=== PATIENT | female | born 1955 | race Caucasian/White ===

== ENCOUNTER 2017-09-18 09:17 | Observation (INO) | payer MEDICARE, MEDICAID ==
[~2017-09-18] VITALS: Ht 157.5 cm; Wt 80.0 kg
[~2017-09-18 09:17] MED LIST: ALAVERT10 MG PO; ALPRAZOLAM0.5 M1 OR; ALPRAZOLAM0.5 MG PO; ALTOPREV20 MG OR; ALTOPREV40 MG OR; AMBIEN10 MG PO; AMLODIPINE10 MG PO; AMLODIPINE5 MG PO; ASPIRIN81 MG PO; ATENOLOL50 MG OR; ATIVAN0.5 MG OR; BACTRIM DS1 TAB PO; BL ASPIRIN325 MG OR; CAPOTEN25 MG OR; CARAFATE OR; CARAFATE1 GM PO; CLONIDINE0.2 MG OR; CLONIDINE0.2 MG PO; CORTISPORIN OP7.5 ML OP; DEPO-MEDROL40 MG/ML IJ; ENALAPRIL20 MG OR; ENALAPRIL20 MG PO; ERY-TAB250 MG OR; FENOFIBRATE134 MG OR; FLAGYL500 MG OR; FLEXERIL PO; FLEXERIL10 MG PO; FLONASE NASAL50 MCG; FLUARIX QUADRIV1 IN1 IM; FLUZONE SPLT1 M1 IM; FREESTYLE LANCET XX; FREESTYLELITE100 XX; GLIPIZIDE10 M1 PO; GLIPIZIDE10 M2 PO; GLIPIZIDE10 MG PO; HYDRALAZINE25 MG PO; HYDROCO/APAP1 T10 PO; HYDROCO/APAP1 T13 PO; KEFLEX500 MG PO; LIPITOR20 MG PO; LIPITOR40 MG PO; LISINOPRIL20 M1 PO; LONITEN2.5 M1 PO; LOPID600 MG OR; LOPRESSOR50 MG OR; LORTAB 7.5 OR; LORTAB 7.5 PO; LORTAB 7.57.5 MG PO; LYRICA50 MG PO; Levaquin PO; MECLIZINE25 MG PO; MEDDOSEPAK PO; METFORMIN500 MG PO; METOPROL TAR100 MG PO; METOPROLOL TAR100 MG PO; METOPROLOL TART50 MG PO; NITRO-DUR0.4 MG/HR TD; NORVASC10 MG OR; OMEPRAZOLE10 MG OR; PAROXETINE10 MG PO; PAXIL30 MG PO; PERCOCET 5/325M1 TAB PO; PLAVIX75 MG PO; PRAVASTATIN80 MG OR; PREMARIN0.3 MG PO; PREVACID30 M1 OR; PROAIR HFA IN; RESTORIL15 M1 OR; TIZANIDINE2 MG PO; TRICOR145 MG OR; ULTRACET OR; UNISOM SLEEP50 MG OR; XANAX0.5 MG OR; ZPAK PO; ZYRTEC-D AL1 OR
[2017-09-18 10:17] LABS: URINE BILIRUBIN - DIPSTICK NEGATIVE (NEGATIVE); URINE BLOOD DIPSTICK MODERATE (NEGATIVE); URINE COLOR YELLOW; URINE GLUCOSE - DIPSTICK NEGATIVE (NEGATIVE); URINE KETONE NEGATIVE (NEGATIVE); URINE PH 5.5 (4.5-8.0); URINE PROTEIN - DIPSTICK 30 mg/dL (NEG-TRACE); URINE SPECIFIC GRAVITY 1.025; URINE UROBILINOGEN - DIPSTICK 0.2 E.U./dL (0.2)
[2017-09-18 10:21] LABS: URINE CLARITY CLOUDY; URINE LEUK ESTERASE MODERATE (NEGATIVE); URINE NITRITE - DIPSTICK POSITIVE (Negative)
[2017-09-18 10:22] LABS: HEMATOCRIT 48.4 % (37.0-47.0); HEMOGLOBIN 15.8 g/dl (12.0-16.0); IMMATURE GRANULOCYTES 0.1 % (0.0-1.0); MEAN CELL VOLUME 94.2 fL CALC (80.0-100.0); MEAN CORPUSCULAR HGB 30.7 pG CALC (26.0-32.0); MEAN CORPUSCULAR HGB CONC 32.6 g/L CALC (32.0-36.0); NEUT# 6.46 thou/uL (2.00-7.15); RED BLOOD COUNT 5.14 mill/uL (4.20-5.60); RED CELL DISTRI WIDTH 13.9 % (11.5-15.5)
[2017-09-18 10:28] LABS: URINE BACTERIA MANY hpf; URINE EPITHELIAL CELLS MANY EPI/hpf (0-FEW); URINE WBC 20-50 WBC/hpf (0-5)
[2017-09-18 10:38] LABS: ANION GAP 17 (6-22 (CALC)); BUN 15 mg/dL (8-23); CARBON DIOXIDE 27 mmol/l (22-30); CHLORIDE 104 mmol/l (95-108); POTASSIUM 4.6 mmol/l (3.5-5.1); SODIUM 143 mmol/l (137-146)
[2017-09-18 10:42] LABS: BUN/CREATININE RATIO 19 (12-20 (CALC)); CREATININE 0.8 mg/dL (0.5-1.0); GFR > 60 ML/MIN (>=60 (CALC)); GFR FOR AFR.AMER. > 60 ML/MIN (>=60 (CALC))
[2017-09-18 12:00] VITALS: BP 192/80
[2017-09-18 16:24] VITALS: BP 192/91
[2017-09-18 17:02] VITALS: BP 210/100
[2017-09-18 19:15] LABS: CHOLESTEROL HDL RATIO 7.4 (<4.4 (CALC))
[2017-09-18 20:30] VITALS: BP 189/92
[2017-09-18 22:13] VITALS: BP 155/93
[2017-09-18 23:30] VITALS: BP 161/86
[2017-09-19] VITALS (7 sets, daily range): BP systolic 132–198; BP diastolic 74–101
[2017-09-19 04:40] LABS: HEMATOCRIT 47.1 % (37.0-47.0); HEMOGLOBIN 15.5 g/dl (12.0-16.0); IMMATURE GRANULOCYTES 0.2 % (0.0-1.0); MEAN CELL VOLUME 94.8 fL CALC (80.0-100.0); MEAN CORPUSCULAR HGB 31.2 pG CALC (26.0-32.0); MEAN CORPUSCULAR HGB CONC 32.9 g/L CALC (32.0-36.0); NEUT# 4.21 thou/uL (2.00-7.15); RED BLOOD COUNT 4.97 mill/uL (4.20-5.60); RED CELL DISTRI WIDTH 13.7 % (11.5-15.5)
[2017-09-19 04:46] LABS: ALBUMIN 4.1 g/dL (3.2-5.0); ALKALINE PHOSPHATASE 106 u/l (38-126); ANION GAP 14 (6-22 (CALC)); BILIRUBIN, TOTAL 0.5 mg/dL (0.0-1.4); BUN 13 mg/dL (8-23); BUN/CREATININE RATIO 19 (12-20 (CALC)); CARBON DIOXIDE 27 mmol/l (22-30); CHLORIDE 106 mmol/l (95-108); CREATININE 0.7 mg/dL (0.5-1.0); GFR > 60 ML/MIN (>=60 (CALC)); GFR FOR AFR.AMER. > 60 ML/MIN (>=60 (CALC)); POTASSIUM 4.3 mmol/l (3.5-5.1); SGOT/AST 15 u/l (9-36); SGPT/ALT 13 u/l (11-66); SODIUM 143 mmol/l (137-146); TOTAL PROTEIN 6.9 g/dL (6.3-8.2)
[2017-09-20 04:50] VITALS: BP 180/72
[2017-09-20 07:10] VITALS: BP 163/95
[2017-09-20 07:13] VITALS: BP 163/95
[2017-09-20] MEDS ORDERED: NITROFURANTOIN100 MG PO (09:16)
[2017-09-20 10:11] LABS: TSH, 3RD GENERATION 1.36 uIU/mL (0.47 - 4.68)
== END 2017-09-20 12:13 | disposition home or self-care (01) ==
LOC: ED 09:17 → ED-I 10:48 → ED 11:05 → MS2 11:06
PROVIDERS: Family Medicine; ADMIT Internal Medicine Geriatric Medicine; ATTEND Internal Medicine Geriatric Medicine
DX: R07.89 Other chest pain (principal); N39.0 Urinary tract infection, site not specified; I25.110 Atherosclerotic heart disease of native coronary artery with unstable angina pectoris; I11.9 Hypertensive heart disease without heart failure; F19.20 Other psychoactive substance dependence, uncomplicated; K21.9 Gastro-esophageal reflux disease without esophagitis; K27.9 Peptic ulcer, site unspecified, unspecified as acute or chronic, without hemorrhage or perforation; F41.9 Anxiety disorder, unspecified; G89.29 Other chronic pain; M54.5 Low back pain; E03.9 Hypothyroidism, unspecified; M85.80 Other specified disorders of bone density and structure, unspecified site; E11.9 Type 2 diabetes mellitus without complications; F32.9 Major depressive disorder, single episode, unspecified; F41.1 Generalized anxiety disorder; R10.13 Epigastric pain; R11.2 Nausea with vomiting, unspecified; B96.20 Unspecified Escherichia coli [E. coli] as the cause of diseases classified elsewhere; Z88.9 Allergy status to unspecified drugs, medicaments and biological substances; Z95.5 Presence of coronary angioplasty implant and graft

== ENCOUNTER → 2017-10-01 | Day surgery (SDC) | payer MEDICARE, MEDICAID ==
[~2017-10-01] MED LIST changes: +NITROFURANTN100 MG PO; +NITROFURANTOIN100 MG PO; +TRAMADOL HYDROC50 MG PO; +UNISOM SLEEP50 MG PO; +[UNRECOGNIZED DRUG - OTHER] PO
[2017-10-01 12:55] VITALS: BP 161/95
== END | disposition home or self-care (01) ==
LOC: ORM 08:12
PROVIDERS: ATTEND Urology
PROC: 0TSD0ZZ Reposition Urethra, Open Approach (ICD-10-PCS; principal; 2017-10-01)
DX: N39.3 Stress incontinence (female) (male) (principal); Z90.710 Acquired absence of both cervix and uterus; Z96.0 Presence of urogenital implants
CPT/HCPCS: C1771

== ENCOUNTER 2017-11-26 15:35 | Emergency (ER) | payer MEDICARE, MEDICAID ==
[~2017-11-26] VITALS: Ht 157.5 cm; Wt 70.0 kg
[2017-11-26] MEDS ORDERED: ATORVASTATIN CA40 MG PO (16:12)
[2017-11-26 16:14] LABS: HEMATOCRIT 37.3 % (37.0-47.0); HEMOGLOBIN 12.3 g/dl (12.0-16.0); IMMATURE GRANULOCYTES 0.4 % (0.0-1.0); MEAN CORPUSCULAR HGB 30.7 pG CALC (26.0-32.0); NEUT# 9.07 thou/uL (2.00-7.15); RED BLOOD COUNT 4.01 mill/uL (4.20-5.60)
[2017-11-26] MEDS ORDERED: PAROXETINE HCL30 MG PO (16:19)
[2017-11-26] MEDS ORDERED: CLONIDINE HCL0.2 MG PO (16:19)
[2017-11-26] MEDS ORDERED: DITROPAN PO (16:19)
[2017-11-26] MEDS ORDERED: PREMARIN0.3 MG PO (16:20)
[2017-11-26] MEDS ORDERED: LONITEN2.5 MG PO (16:21)
[2017-11-26] MEDS ORDERED: NORCO1 TA2 PO (16:22)
[2017-11-26] MEDS ORDERED: ZOLPIDEM TARTRA10 MG PO (16:22)
[2017-11-26] MEDS ORDERED: FLEXERIL5 MG PO (16:23)
[2017-11-26] MEDS ORDERED: LOPID600 MG PO (16:23)
[2017-11-26] MEDS ORDERED: ALPRAZOLAM0.5 M2 PO (16:23)
[2017-11-26] MEDS ORDERED: TYLENOL 500MG TAB PO (16:24)
[2017-11-26] MEDS ORDERED: UNISOM SLEEP50 MG PO (16:25)
[2017-11-26 17:30] VITALS: BP 131/74
== END 2017-11-26 17:30 | disposition home or self-care (01) ==
LOC: ED 15:35
PROVIDERS: Family Medicine
DX: L76.32 Postprocedural hematoma of skin and subcutaneous tissue following other procedure (principal); I10 Essential (primary) hypertension; E78.5 Hyperlipidemia, unspecified; E11.9 Type 2 diabetes mellitus without complications; I25.10 Atherosclerotic heart disease of native coronary artery without angina pectoris; Z85.41 Personal history of malignant neoplasm of cervix uteri; Z85.43 Personal history of malignant neoplasm of ovary; Z95.5 Presence of coronary angioplasty implant and graft; Y84.0 Cardiac catheterization as the cause of abnormal reaction of the patient, or of later complication, without mention of misadventure at the time of the procedure

== ENCOUNTER 2018-08-25 06:54 | Inpatient (IN) | payer MEDICARE, MEDICAID ==
[~2018-08-25] VITALS: Ht 157.5 cm; Wt 68.2 kg
[2018-08-25] VITALS (36 sets, daily range): BP systolic 129–191; BP diastolic 62–110
[~2018-08-25 06:54] MED LIST changes: +ALPRAZOLAM0.5 M2 PO; +ATORVASTATIN CA40 MG PO; +CLONIDINE HCL0.2 MG PO; +DITROPAN PO; +FLEXERIL5 MG PO; +LONITEN2.5 MG PO; +LOPID600 MG PO; +NORCO1 TA2 PO; +PAROXETINE HCL30 MG PO; +TYLENOL 500MG TAB PO; +ZOLPIDEM TARTRA10 MG PO
--- NOTE | 2018-08-25 06:55 | NUR ---
PATIENT ARRIVES TO ED VIA EMS.
[2018-08-25 07:28] LABS: HEMATOCRIT 45.8 % (37.0-47.0); HEMOGLOBIN 15.1 g/dl (12.0-16.0); IMMATURE GRANULOCYTES 0.3 % (0.0-5.0); MEAN CELL VOLUME 93.7 fL CALC (80.0-100.0); MEAN CORPUSCULAR HGB 30.9 pG CALC (26.0-32.0); NEUT# 7.78 thou/uL (2.00-7.15); RED BLOOD COUNT 4.89 mill/uL (4.20-5.60); RED CELL DISTRI WIDTH 13.3 % (11.5-15.5)
[2018-08-25 07:40] LABS: BARBITURATES NEGATIVE (NEGATIVE); COCAINE NEGATIVE (NEGATIVE); METHADONE NEGATIVE (NEGATIVE); OXCYCODONE NEGATIVE (NEGATIVE); TETRAHYDROCANNABIONOL POSITIVE (NEGATIVE); TRICYLIC ANTIDEPRESSANTS NEGATIVE (NEGATIVE)
--- NOTE | 2018-08-25 07:43 | NUR ---
INCREASED CARDENE DRIP TO 7.5 AFTER 15 MIN FOR BLOOD PRESSURE OF 220/93
[2018-08-25 07:45] LABS: ALBUMIN 4.7 g/dL (3.2-5.0); ALKALINE PHOSPHATASE 98 u/l (38-126); ANION GAP 16 (6-22 (CALC)); BILIRUBIN, TOTAL 0.5 mg/dL (0.0-1.4); BUN 16 mg/dL (8-23); BUN/CREATININE RATIO 26 (12-20 (CALC)); CARBON DIOXIDE 25 mmol/l (22-30); CHLORIDE 105 mmol/l (95-108); CREATININE 0.6 mg/dL (0.5-1.0); GFR > 60 ML/MIN (>=60 (CALC)); GFR FOR AFR.AMER. > 60 ML/MIN (>=60 (CALC)); POTASSIUM 4.5 mmol/l (3.5-5.1); SGOT/AST 23 u/l (9-36); SODIUM 142 mmol/l (137-146); TOTAL PROTEIN 7.4 g/dL (6.3-8.2)
--- NOTE | 2018-08-25 08:08 | NUR ---
PT RESTING QUIETLY WATCHING TV, NO CHEST PAIN AT THIS TIME. HAS A TOTAL OF 250CC OUTPUT OF URINE SINCE ARRIVAL
--- NOTE | 2018-08-25 08:25 | NUR ---
CALLED TO PTS ROOM, PT STATES SHE IS FEELING SOME PRESSURE ARUOND CHEST AT THIS TIME, DOESNT KNOW IF IT IS HEART OR ANXIETY BECAUSE SHE HASNT BEEN SMOKING HER MARIJUANA THIS AM. PT OPENLY ADMITS TO SMOKING MARIJUANA EVERY DAY, SEVERAL TIMES A DAY FOR 15 YEARS. ASKED IF SHE COULD HAVE HER FAMILY BRING HER IN SOME, ADVISED THIS IS A NON SMOKING FACILITY AND NO SHE COULD NOT, BUT TO ADDRESS IT WITH HER DOCTOR.
--- NOTE | 2018-08-25 08:26 | NUR ---
2ND EKG OBTAINED WITH NO CHANGES
--- NOTE | 2018-08-25 08:57 | NUR ---
NO CHEST PAIN AT THIS TIME
--- NOTE | 2018-08-25 09:10 | NUR ---
PT REMAINS CALM, NO MORE CHEST PAIN, CARDENE REMAINS AT 7.5 MG. VITAL SIGNS STABLE
--- NOTE | 2018-08-25 10:00 | NUR ---
NO CHEST PAIN, PT UP TO BATHROOM, BEDSIDE COMMODE. 500 CC URINE OUTPUT TOTAL FOR ER.
--- NOTE | 2018-08-25 10:44 | NUR ---
RECVD REPORT FROM GANGA RODRÍGUEZ IN ER
--- NOTE | 2018-08-25 10:45 | NUR ---
REPORT CALLED TO ICU, PT PACKAGED AND TRANSFERRED WITH MONITER PER STRETCHER.
--- NOTE | 2018-08-25 10:55 | NUR ---
PT ARRIVED TO ICU 6 BY STRETCHER WITH IV FROM ER. PT AMBULATED TO NEW BED WITH STEADY GAIT. PT COOPERATIVE & FRIENDLY WITH STAFF.
--- NOTE | 2018-08-25 11:15 | NUR ---
PT C/O GENERALIZED CHEST PAIN THAT "WRAPS AROUND TO BACK". DESCRIBED DULL INTERMITTENT PAIN x"FOREVER" BUT WORSENED IN LAST 2 DAYS. PT ADMITS TO SMOKING "ALL DAY" x15 YEARS, STATES SHE SMOKES TO RELEIVE ANXIETY BUT HAS NOT HAD ANY SINCE ARRIVING TO HOSPITAL THIS AM. PT DENIES SOB. DENIES N/V/D. STATES PAIN IS 4/10 RIGHT NOW. USUALLY TAKES LORTAB 7.5MG AT HOME FOR PAIN BUT HAS BEEN OUT FOR A MONTH. PT USUALLY LIVES ALONE BUT HER GRANDDAUGHTER HAS BEEN STAYING WITH HER; SHE FEELS SAFE. SHE DOES NOT DRIVE, SHE WALKS EVERYWHERE. ALLERGIC TO MANY DRUGS & SHELLFISH. DOES NOT EAT SEAFOOD. ABD SOFT/NONTENDER. PT STATES BM x2 DAYS AGO, WHICH IS NORMAL FOR PT, DOES NOT USE LAXATIVES. PT DENIES FALLS & USE OF MOBILITY DEVICE. STRONG PULSES x4, NO EDEMA. NSR ON TELE. DENIES ALCOHOL & TABACO USE. HAS UPPER DENTURES, NO HEARING AIDS. HAS HAD THE FLU SHORT THIS SEASON, PNA SHOT LAST YEAR. EXPLAINED CALLBELL & BED CONTROLS. CALLBELL W/IN REACH. BED IN LOWEST POSITION, WHEELS LOCKED, TOP RAILS UP. BSC NEXT TO BED. PT STATES SHE URCOLONI PLACED A BLADDER STIMULATOR BUT IT DOESNT WORK AND SHES UP TO TOILET ALL THE TIME.
--- NOTE | 2018-08-25 11:23 | NUR ---
PHARMACY WILL SEND BAG OF CARDENE. DR PAUL CONTACTED FOR DIET ORDER. RBVO FOR CARDIAC TRAY.
--- NOTE | 2018-08-25 13:00 | NUR ---
PT RESTING IN BED, EYES CLOSED. NO S/S OF DISTRESS. CALLBELL W/IN REACH. WILL CONTINUE TO MONITOR.
--- NOTE | 2018-08-25 14:08 | NUR ---
CARDENE TITRATED TO 5. NITRO PASTE REMOVED. PT C/O ALVARADO, PREVIOUSLY MEDICATED.
--- NOTE | 2018-08-25 14:50 | NUR ---
RT @BEDSIDE FOR EKG
--- NOTE | 2018-08-25 15:08 | NUR ---
PT RETURNED UNIT PORTABLE PHONE. STATES SHE'S GOING TO SLEEP NOW.
--- NOTE | 2018-08-25 16:01 | NUR ---
PT MEDICATED FOR C/O NAUSEA. DENIES CP & SOB, STATES NECK IS STIFF. PT ENCOURAGED TO REPOSITION. PT IS COOPERATIVE & FRIENDLY TOWARDS STAFF. NEW BAG OF CARDENE STARTED. PTS BP FLUCUATING UP & DOWN, VS TAKEN Q15MIN. BSC EMPTIED. 450cc CLEAR LIGHT YELLOW URINE.
--- NOTE | 2018-08-25 17:30 | NUR ---
DR PAUL @BEDSIDE ASSESSING PT & DISCUSSING POC. PT CALLED MD BACK INTO ROOM TO ASK MORE QUESTIONS.
--- NOTE | 2018-08-25 18:24 | NUR ---
PT TALKING ON CELLPHONE, READING OFF BP EVERY TIME IT CYCLES.
--- NOTE | 2018-08-25 19:30 | NUR ---
PT SITTING UP IN BED WATCHING TV. PT IS ALERT AND ORIENTED X3. SHIFT ASSESSMENT COMPLETED AT THIS TIME. IV PATENT X1. PT DENIES PAIN AT THIS TIME. PLAN OF CARE REVIEWED WITH PT. CALL LIGHT IN REACH. WILL CONTINUE TO MONITOR
--- NOTE | 2018-08-25 21:30 | NUR ---
RT AT BEDSIDE TO COMPLETE EKG
--- NOTE | 2018-08-25 22:30 | NUR ---
GRANDDAUGHTER CALLED FOR UPDATE. UPDATE PROVIDED.
--- NOTE | 2018-08-25 23:15 | NUR ---
HIGHWAY PAINTER AT BEDSIDE TO DRAW TROPONIN
[2018-08-26] VITALS (37 sets, daily range): BP systolic 127–229; BP diastolic 67–131
--- NOTE | 2018-08-26 00:35 | NUR ---
PT PLACED BACK ON CARDENE GTT PER TITRATION RECORD FOR BP 229/129. PT REMAINS BRADYCARDIC LOW 60S TO 50S. CALL LIGHT IN REACH. WILL CONTINUE TO MONITR.
--- NOTE | 2018-08-26 01:41 | NUR ---
PT RESTING IN BED WITH EYES CLOSED. BP IS IMPROVED. STILL HTN NOTED. WILL CONTINUE TO MONITOR.
--- NOTE | 2018-08-26 03:50 | NUR ---
labor supervisor at bedside to draw am labs
[2018-08-26 04:05] LABS: IMMATURE GRANULOCYTES 0.3 % (0.0-5.0); MEAN CELL VOLUME 92.7 fL CALC (80.0-100.0); MEAN CORPUSCULAR HGB 30.7 pG CALC (26.0-32.0); MEAN CORPUSCULAR HGB CONC 33.1 g/L CALC (32.0-36.0); RED BLOOD COUNT 5.73 mill/uL (4.20-5.60); RED CELL DISTRI WIDTH 13.4 % (11.5-15.5)
[2018-08-26 04:09] LABS: HEMATOCRIT 53.1 % (37.0-47.0); HEMOGLOBIN 17.6 g/dl (12.0-16.0)
[2018-08-26 04:14] LABS: ALBUMIN 4.8 g/dL (3.2-5.0); ALKALINE PHOSPHATASE 103 u/l (38-126); ANION GAP 16 (6-22 (CALC)); BILIRUBIN, TOTAL 0.8 mg/dL (0.0-1.4); BUN 12 mg/dL (8-23); BUN/CREATININE RATIO 16 (12-20 (CALC)); CALCULATED LDLCHOLESTEROL 106 mg/dL (62-129 (CALC)); CARBON DIOXIDE 26 mmol/l (22-30); CHLORIDE 103 mmol/l (95-108); CHOLESTEROL HDL RATIO 3.2 (<4.4 (CALC)); CREATININE 0.8 mg/dL (0.5-1.0); GFR > 60 ML/MIN (>=60 (CALC)); GFR FOR AFR.AMER. > 60 ML/MIN (>=60 (CALC)); HDL CHOLESTEROL 62 mg/dL (>=40); POTASSIUM 4.1 mmol/l (3.5-5.1); SGOT/AST 26 u/l (9-36); SODIUM 142 mmol/l (137-146); TOTAL CHOLESTEROL 198 mg/dl (0-199); TOTAL PROTEIN 7.8 g/dL (6.3-8.2); TOTAL TRIGLYCERIDES 152 mg/dl (30-149); VLDL CHOLESTROL 30 mg/dl (1-41 (CALC))
--- NOTE | 2018-08-26 05:46 | NUR ---
RT IN ROOM COMPLETING AM EKG
--- NOTE | 2018-08-26 06:45 | NUR ---
RECVD REPORT FROM GANGA TELLO AT START OF SHIFT.
--- NOTE | 2018-08-26 08:06 | NUR ---
DR PAUL @BEDSIDE DISCUSSING POC WITH PT.
--- NOTE | 2018-08-26 08:12 | NUR ---
RBVO FROM DR PAUL TO STOP EMILE MCCLAIN, HE WILL REPLACE WITH PO MEDS.
--- NOTE | 2018-08-26 09:08 | NUR ---
PT MEDICATED WITH MORNING MEDS. EDUCATED PT ON WHAT MEDS GIVEN AND WHAT THEY ARE INDICATED FOR. PT FRINEDLY WITH STAFF, VERY TALKATIVE, SHOWING PICTURES OF HER GRANDAUGHTER THAT IN DECEMBER. FRANSISCO W/IN REACH. BP HIGH. WILL CONTINUE TO MONITOR.
--- NOTE | 2018-08-26 11:38 | NUR ---
LUNCH TRAY PLACED ON BEDSIDE TABLE. PT ASKED IF SHE NEEDED TO EAT THAT NOW BC SHE WANTED TO TAKE A NAP. PT INFORMED WE CAN REHEAT FOOD LATER.
--- NOTE | 2018-08-26 12:01 | NUR ---
DR PAUL CALLED TO CHECK ON PTS BP. ADVISED PT WILL STAY ANOTHER NIGHT D/T BP OF 200'S/130'S. PT NOTIFIED.
--- NOTE | 2018-08-26 13:50 | NUR ---
PT SNORING IN BED WITH HEAD UNDER COVERS. NO S/S OF DISTRESS AT THIS TIEM.
--- NOTE | 2018-08-26 15:16 | NUR ---
EMS IV DC, TIP INTACT, DRESSING APPLIED. NEW IV #20g RAC ESTABLISHED W/BLOOD RETURN & EASY FLUSH. BP CUFF MOVED TO LEFT ARM. PT TOLERATED WELL. PT TALKING ON HER PHONE TO HER GRANDDAUGHTER. SHE IS HAPPY THAT ADMINISTRATION GAVE HER A COKE EARIER DURING ROUNDS. DENIES CP. DENIES SOB. WILL CONTINUE TO MONITOR.
--- NOTE | 2018-08-26 16:50 | NUR ---
PT SLEEPING ON RIGHT SIDE. CALLBELL W/IN REACH. NO S/S OF DISTRESS AT THIS TIME. WILL CONTINUE TO MONITOR.
--- NOTE | 2018-08-26 17:36 | NUR ---
PT C/O NAUSEA. MEDICATED FOR NAUSEA, ANXIETY, & CONSTIPATION. PT REFUSED DINNER.
--- NOTE | 2018-08-26 18:45 | NUR ---
REPORT FROM Kristy CORDOVA RN. ASSUMED PT. CARE.
--- NOTE | 2018-08-26 19:15 | NUR ---
PT. FOUND AWAKE, ALERT, ORIENTED X 3. SKIN WARM AND DRY. RESPS EVEN AND UNLABORED. NO DISTRESS NOTED. CALL LIGHT WITHIN REACH. LUNGS CTA. BOWEL SOUNDS PRESENT IN ALL QUADS. AFEBRILE. SINUS KAYLA ON THE MONITOR WITH MULTIFOCAL PVC'S. BP STABLE. NO EDEMA NOTED. DISTIL PULSES INTACT. CHIVO HOSE APPLIED. WILL CONTINUE TO MONITOR.
--- NOTE | 2018-08-26 20:20 | NUR ---
FAMILY AT BEDSIDE AT THIS TIME. PT. REMAINS STABLE. CALL LIGHT REMAINS WITHIN REACH. DENIES COMPLAINTS OF PAIN OR NEED.
--- NOTE | 2018-08-26 21:43 | NUR ---
PT. RESTING IN BED WITH EYES CLOSED. RESPS EVEN AND UNLABORED. REMAINS SINUS KAYLA ON THE MONITOR IN THE MID 40'S. CALL LIGHT REMAINS WITHIN REACH. WILL CONTINUE TO ASSESS.
--- NOTE | 2018-08-26 23:15 | NUR ---
PT. RESTING IN BED WITH EYES CLOSED. RESPS EVEN AND UNLABORED. REMAINS SINUS KAYLA WITH MULTIFOCAL PVC. BP SLIGHTLY ELEVATED. WILL CONTINUE TO ASESS.
[2018-08-27] VITALS (17 sets, daily range): BP systolic 117–221; BP diastolic 72–126
--- NOTE | 2018-08-27 00:29 | NUR ---
PT. EASILY AROUSABLE TO LIGHT VERBAL STIMULI. REMAINS AFEBRILE. MEDICATED PER PHYSICIAN ORDERS. BP REMAINS SLIGHTLY ELEVATED. WILL ASSESS FOR MEDICATION EFFECT. WARM BLANKET PROVIDED. CALL LIGHT REMAINS WITHIN REACH. WILL CONTINUE TO MONITOR.
--- NOTE | 2018-08-27 02:35 | NUR ---
PT. RESTING IN BED WITH EYES CLOSED. REMAINS STABLE ON THE MONITOR. HR REMAINS SINUS KAYLA IN THE 40'S. CALL LIGHT REMAINS WITHIN REACH.
--- NOTE | 2018-08-27 04:58 | NUR ---
PT. AWAKE, ALERT, ORIENTED X 3. NO DISTRESS. WATCHING TELEVISION. LAB AT BEDSIDE AT THIS TIME TO DRAW PATIENT. BP ELEVATED, WILL CONTINUE TO ASSESS.
[2018-08-27 05:03] LABS: HEMATOCRIT 49.5 % (37.0-47.0); HEMOGLOBIN 16.6 g/dl (12.0-16.0); IMMATURE GRANULOCYTES 0.2 % (0.0-5.0); MEAN CELL VOLUME 92.2 fL CALC (80.0-100.0); MEAN CORPUSCULAR HGB 30.9 pG CALC (26.0-32.0); MEAN CORPUSCULAR HGB CONC 33.5 g/L CALC (32.0-36.0); NEUT# 4.72 thou/uL (2.00-7.15); RED BLOOD COUNT 5.37 mill/uL (4.20-5.60); RED CELL DISTRI WIDTH 13.4 % (11.5-15.5)
[2018-08-27 05:30] LABS: ALBUMIN 4.6 g/dL (3.2-5.0); ALKALINE PHOSPHATASE 93 u/l (38-126); ANION GAP 15 (6-22 (CALC)); BILIRUBIN, TOTAL 0.8 mg/dL (0.0-1.4); BUN 26 mg/dL (8-23); BUN/CREATININE RATIO 31 (12-20 (CALC)); CARBON DIOXIDE 24 mmol/l (22-30); CHLORIDE 103 mmol/l (95-108); CREATININE 0.9 mg/dL (0.5-1.0); GFR > 60 ML/MIN (>=60 (CALC)); GFR FOR AFR.AMER. > 60 ML/MIN (>=60 (CALC)); POTASSIUM 3.9 mmol/l (3.5-5.1); SGOT/AST 21 u/l (9-36); SODIUM 138 mmol/l (137-146); TOTAL PROTEIN 7.2 g/dL (6.3-8.2)
--- NOTE | 2018-08-27 06:09 | NUR ---
BP REMAINS ELEVATED AT THIS TIME. MEDICATED PER PHYSICIAN ORDERS. WILL CONTINUE TO ASSESS FOR IMPROVEMENT.
--- NOTE | 2018-08-27 07:15 | NUR ---
PT RESTING IN BED, WATCHING TELEVISION, OFFERS NO COMPLAINTS, BP ELEVATED WILL MEDICATED ORDERED, AM ASSESSMENT COMPLETED SEE INTERVENTIONS, LUNGS DIMINSHED WITH NO SOB OR DISTRESS NOTED, ABD SOFT BS ACTIVE PT DENIES N/V. TELE READING SR RATE IN THE 70'S, IV ACCESS INTACT AND SALINE LOCKED, COMFORT MEASURES PROVIDED AND ENCOURAGED TO CALL FOR ANY NEEDED ASSISTANCE, WILL CONTINUE TO MONITOR. CALL [place] WITHIN REACH.
--- NOTE | 2018-08-27 08:11 | NUR ---
INTO SEE PATIENT, NPO STATUS EXPLAINED TO PT AND MAINTAINED UNTIL RENAL US COMPLETED, PT VERBALIZES UNDERSTANDING, CALL [place] WITHIN REACH
--- NOTE | 2018-08-27 09:47 | NUR ---
B/P IMPROVED 155/88, CALL [place] WITHIN REACH, PT OFFERS NO OTHER COMPLAINTS NPO STATUS MAINTAINED
--- NOTE | 2018-08-27 10:15 | NUR ---
PT TO RADIOLOGY VIA FOR ULTRASOUND ORDERED.
--- NOTE | 2018-08-27 10:50 | NUR ---
PT BACK FROM RADIOLOGY, BACK TOBED WITH STEADY GAIT, OFFERS NO NEW COMPLAINTS, MAITE AT BEDSIDE VISITING, WILL CONTINUE TO MONITOR
--- NOTE | 2018-08-27 11:45 | NUR ---
set up assist provided for pm meal, call powell within reach.
--- NOTE | 2018-08-27 12:45 | NUR ---
Tolerated pm meal well wtih good intake, call powell within reach, see intervention for VS
--- NOTE | 2018-08-27 13:53 | NUR ---
pt spilled water on herself gown and complete linen change provided, pt tolerated well, call powell within reach
--- NOTE | 2018-08-27 15:09 | NUR ---
notified of ultrasound results.
--- NOTE | 2018-08-27 15:40 | NUR ---
pt resting in bed, offers no new complaints, BP remains improved, call powell within reach, will continue to monitor,
--- NOTE | 2018-08-27 17:40 | NUR ---
IN TO SEE PATIENT
--- NOTE | 2018-08-27 18:11 | NUR ---
TAKES PO MEDICATION W/O INCIDENT, CALL [place] WITHIN REACH
--- NOTE | 2018-08-27 18:50 | NUR ---
REPORT FROM GANGA ISLAS. ASSUMED PT. CARE.
--- NOTE | 2018-08-27 19:55 | NUR ---
PT. FOUND RESTING ON LT. SIDE IN NO DISTRESS. RESPS EVEN AND UNLABORED. SKIN WARM AND DRY. TYRONE. ASSESSMENT BENIGN. LUNGS CTA. BOWEL SOUNDS PRESENT IN ALL QUADS.
--- NOTE | 2018-08-27 20:21 | NUR ---
PROVIDED WITH TAYLOR VIERA AT THIS TIME. GRANDDAUGHTER AT BEDSIDE AT THIS TIME.
--- NOTE | 2018-08-27 22:30 | NUR ---
PT. RESTING IN BED WITH EYES CLOSED. RESPS REMAIN EVEN AND UNLABORED. HR KAYLA, BP STABLE. WILL CONTINUE TO MONITOR.
[2018-08-28] VITALS (7 sets, daily range): BP systolic 120–186; BP diastolic 63–98
--- NOTE | 2018-08-28 00:05 | NUR ---
PT. MEDICATED PER PHYSICIAN ORDERS. BP REMAINS STABLE. EASILY AROUSABLE TO LIGHT VERBAL STIMULI. REMAINS AFEBRILE. CONTINUES TO BE KAYLA IN THE 40'S. NO DISTRESS.
--- NOTE | 2018-08-28 01:28 | NUR ---
PT. RESTING IN BED WITH EYES CLOSED IN NO DISTRESS. CALL LIGHT WITHIN REACH. BP STABLE.
--- NOTE | 2018-08-28 02:54 | NUR ---
PT. RESTING IN BED WITH EYES CLOSED. RESPS REMAIN EVEN AND UNLABORED. BP/HR STABLE. WILL CONTINUE TO MONITOR.
--- NOTE | 2018-08-28 05:20 | NUR ---
LAB AT BEDSIDE TO DRAW PT. PT. REMAINS EASILY AROUSABLE TO LIGHT VERBAL STIMULI. DENIES COMPLAINTS OF PAIN OR NEEDS. RESPS EVEN AND UNLABORED. VSS. WILL CONTINUE TO MONITOR.
--- NOTE | 2018-08-28 05:40 | NUR ---
PT. UP TO RESTROOM AT THIS TIME. AMBULATORY WITH STEADY GAIT. MODERATE LOOSE BM NOTED. PT. STATES SHE FEELS MUCH BETTER AFTER HAVING A BM. C/O MODERATE 7/10 HEAD/NECK PAIN. MEDICATED PER PHYSICIAN ORDERS. DENIES OTHER COMPLAINTS OR NEEDS AT THIS TIME. MEDICATED FOR BP ORDERED. WILL CONTINUE TO MONITOR.
--- NOTE | 2018-08-28 07:30 | NUR ---
PT ASSESSMENT IS COMPLTED: IV SITE IS FREE FROM REDNESS OR EDEMA.HR IS REG,PULSES ARE STRONG X4, ABD IS SOFT WITH ACTIVE BS. BREATH SOUNDS ARE CLEAR BILATERALLY. CONTINUE TO OSBERVE AND MONITOR.
[2018-08-28] MEDS ORDERED: HYDRALAZINE25 MG PO (08:04)
[2018-08-28] MEDS ORDERED: METOPROL TAR25 MG PO (08:04)
[2018-08-28] MEDS ORDERED: TRAMADOL HCL50 MG PO (08:05)
[2018-08-28] MEDS ORDERED: PAXIL30 MG PO (08:05)
--- NOTE | 2018-08-28 09:37 | NUR ---
DISCHARGE INSTRUCTIONS GIVEN PT HAS ALREADY CALLED FAMILY. WANTED TO WAIT IN THE FRONT / IV SITE DISCONTINUED CATHETER INTACT,. NO REDNESS OR EDEMA. ALL BELONGINGS SENT WITH PT.
== END 2018-08-28 09:45 | disposition home or self-care (01) | DRG 305 ==
LOC: ED 06:54 → ED-I 08:17 → ED 08:50 → ICU 08:51
PROVIDERS: Emergency Medicine; ADMIT Internal Medicine Geriatric Medicine; ATTEND Internal Medicine Geriatric Medicine
DX: I11.9 Hypertensive heart disease without heart failure (principal); F11.20 Opioid dependence, uncomplicated; I25.110 Atherosclerotic heart disease of native coronary artery with unstable angina pectoris; E07.9 Disorder of thyroid, unspecified; E11.9 Type 2 diabetes mellitus without complications; M19.90 Unspecified osteoarthritis, unspecified site; F12.10 Cannabis abuse, uncomplicated; F41.8 Other specified anxiety disorders; G89.29 Other chronic pain; M54.9 Dorsalgia, unspecified; Z95.5 Presence of coronary angioplasty implant and graft

== ENCOUNTER 2019-05-18 13:10 | Emergency (ER) | payer MEDICARE, MEDICAID ==
[~2019-05-18] VITALS: Ht 157.5 cm; Wt 77.0 kg
[~2019-05-18 13:10] MED LIST changes: +METOPROL TAR25 MG PO; +TRAMADOL HCL50 MG PO
[2019-05-18 14:02] LABS: HEMATOCRIT 42.1 % (37.0-47.0); HEMOGLOBIN 13.9 g/dl (12.0-16.0); IMMATURE GRANULOCYTES 0.4 % (0.0-5.0); MEAN CELL VOLUME 90.3 fL CALC (80.0-100.0); MEAN CORPUSCULAR HGB 29.8 pG CALC (26.0-32.0); NEUT# 9.75 thou/uL (2.00-7.15); RED BLOOD COUNT 4.66 mill/uL (4.20-5.60); RED CELL DISTRI WIDTH 13.2 % (11.5-15.5)
[2019-05-18] MEDS ORDERED: CLARITHROMYCIN500 MG PO (14:31)
[2019-05-18 14:50] VITALS: BP 180/84
== END 2019-05-18 14:50 | disposition home or self-care (01) ==
LOC: ED 13:10
PROVIDERS: Family Medicine
DX: J02.9 Acute pharyngitis, unspecified (principal); I10 Essential (primary) hypertension; E11.9 Type 2 diabetes mellitus without complications; I25.10 Atherosclerotic heart disease of native coronary artery without angina pectoris; Z95.5 Presence of coronary angioplasty implant and graft

== ENCOUNTER 2019-06-06 13:46 | Inpatient (IN) | payer MEDICARE, MEDICAID ==
[~2019-06-06] VITALS: Ht 157.5 cm; Wt 67.4 kg
[~2019-06-06 13:46] MED LIST changes: +CLARITHROMYCIN500 MG PO
[2019-06-06 14:19] VITALS: BP 131/74
[2019-06-06 14:46] LABS: HEMATOCRIT 46.7 % (37.0-47.0); HEMOGLOBIN 15.8 g/dl (12.0-16.0); IMMATURE GRANULOCYTES 0.2 % (0.0-5.0); MEAN CELL VOLUME 87.9 fL CALC (80.0-100.0); MEAN CORPUSCULAR HGB 29.8 pG CALC (26.0-32.0); MEAN CORPUSCULAR HGB CONC 33.8 g/L CALC (32.0-36.0); NEUT# 4.63 thou/uL (2.00-7.15); RED BLOOD COUNT 5.31 mill/uL (4.20-5.60); RED CELL DISTRI WIDTH 13.4 % (11.5-15.5)
[2019-06-06 15:06] LABS: ALBUMIN 5.3 g/dL (3.2-5.0); BILIRUBIN, TOTAL 0.7 mg/dL (0.0-1.4); MAGNESIUM 2.6 mg/dL (1.6-2.3); POTASSIUM 4.4 mmol/l (3.5-5.1)
[2019-06-06 15:15] LABS: CREATININE 1.8 mg/dL (0.5-1.0)
[2019-06-06] MEDS ORDERED: HYDRALAZINE10 MG PO (16:35)
[2019-06-06] MEDS ORDERED: LABETALOL HYDR100 MG PO (16:37)
[2019-06-06] MEDS ORDERED: LISINOPRIL20 M1 PO (16:38)
[2019-06-06] MEDS ORDERED: EPLERENONE50 MG PO (16:39)
[2019-06-06] MEDS ORDERED: OMEPRAZOLE DR40 MG PO (16:39)
[2019-06-06] MEDS ORDERED: NITROSTAT0.4 MG SL (16:41)
[2019-06-06 18:37] VITALS: BP 150/100
[2019-06-06 21:30] VITALS: BP 121/78
[2019-06-06 21:35] VITALS: BP 131/77
[2019-06-06 21:40] VITALS: BP 113/74
[2019-06-07 00:01] VITALS: BP 108/67
[2019-06-07 04:14] VITALS: BP 113/70
[2019-06-07 05:11] LABS: HEMATOCRIT 41.6 % (37.0-47.0); HEMOGLOBIN 13.9 g/dl (12.0-16.0); IMMATURE GRANULOCYTES 0.1 % (0.0-5.0); MEAN CELL VOLUME 89.8 fL CALC (80.0-100.0); MEAN CORPUSCULAR HGB CONC 33.4 g/L CALC (32.0-36.0); NEUT# 3.05 thou/uL (2.00-7.15); RED BLOOD COUNT 4.63 mill/uL (4.20-5.60); RED CELL DISTRI WIDTH 13.5 % (11.5-15.5)
[2019-06-07 05:25] LABS: CREATININE 1.2 mg/dL (0.5-1.0); POTASSIUM 4.8 mmol/l (3.5-5.1)
[2019-06-07 08:00] VITALS: BP 111/74
[2019-06-07 15:02] LABS: URINE BILIRUBIN - DIPSTICK NEGATIVE (NEGATIVE); URINE BLOOD DIPSTICK TRACE-INTACT (NEGATIVE); URINE COLOR YELLOW; URINE GLUCOSE - DIPSTICK NEGATIVE (NEGATIVE); URINE KETONE NEGATIVE (NEGATIVE); URINE LEUK ESTERASE NEGATIVE (NEGATIVE); URINE NITRITE - DIPSTICK NEGATIVE (Negative); URINE PH 5.5 (4.5-8.0); URINE PROTEIN - DIPSTICK NEGATIVE (NEG-TRACE); URINE SPECIFIC GRAVITY 1.015; URINE UROBILINOGEN - DIPSTICK 0.2 E.U./dL (0.2)
[2019-06-07 16:00] VITALS: BP 144/77
[2019-06-07 18:55] VITALS: BP 124/26; BP 124/76
[2019-06-07 23:50] VITALS: BP 137/75
[2019-06-08 05:02] VITALS: BP 135/61
[2019-06-08 06:14] LABS: HEMATOCRIT 37.9 % (37.0-47.0); HEMOGLOBIN 12.4 g/dl (12.0-16.0); MEAN CORPUSCULAR HGB 29.5 pG CALC (26.0-32.0); MEAN CORPUSCULAR HGB CONC 32.7 g/L CALC (32.0-36.0); RED BLOOD COUNT 4.21 mill/uL (4.20-5.60); RED CELL DISTRI WIDTH 13.3 % (11.5-15.5)
[2019-06-08 06:30] LABS: ANION GAP 15 (6-22 (CALC)); BUN 28 mg/dL (8-23); BUN/CREATININE RATIO 36 (12-20 (CALC)); CARBON DIOXIDE 22 mmol/l (22-30); CHLORIDE 105 mmol/l (95-108); CREATININE 0.8 mg/dL (0.5-1.0); GFR > 60 ML/MIN (>=60 (CALC)); GFR FOR AFR.AMER. > 60 ML/MIN (>=60 (CALC)); POTASSIUM 4.9 mmol/l (3.5-5.1); SODIUM 137 mmol/l (137-146)
[2019-06-08 07:53] VITALS: BP 142/74
[2019-06-08 16:00] VITALS: BP 112/67
[2019-06-08 18:55] VITALS: BP 122/65
[2019-06-09 00:05] VITALS: BP 143/71
[2019-06-09 03:50] VITALS: BP 119/61
[2019-06-09 08:05] VITALS: BP 150/80
[2019-06-09] MEDS ORDERED: ASPIRIN ADULT L81 M2 PO (10:04)
[2019-06-09] MEDS ORDERED: PROTONIX40 MG PO (10:36)
[2019-06-09 11:06] VITALS: BP 163/80
== END 2019-06-09 13:21 | disposition home or self-care (01) | DRG 392 ==
LOC: MS2 13:46
PROVIDERS: Nurse Practitioner Family; ADMIT Internal Medicine; ATTEND Internal Medicine
PROC: 3E0234Z Introduction of Serum, Toxoid and Vaccine into Muscle, Percutaneous Approach (ICD-10-PCS; 2016-06-07)
PROC: 3E02340 Introduction of Influenza Vaccine into Muscle, Percutaneous Approach (ICD-10-PCS; principal; 2019-06-07)
DX: R11.2 Nausea with vomiting, unspecified (principal); N17.9 Acute kidney failure, unspecified; R19.7 Diarrhea, unspecified; R55 Syncope and collapse; R41.0 Disorientation, unspecified; M47.816 Spondylosis without myelopathy or radiculopathy, lumbar region; E11.9 Type 2 diabetes mellitus without complications; I10 Essential (primary) hypertension; I25.10 Atherosclerotic heart disease of native coronary artery without angina pectoris; E78.5 Hyperlipidemia, unspecified; F32.9 Major depressive disorder, single episode, unspecified; F41.9 Anxiety disorder, unspecified; R29.810 Facial weakness; E86.0 Dehydration; H53.2 Diplopia; Z23 Encounter for immunization; Z96.0 Presence of urogenital implants; Z95.5 Presence of coronary angioplasty implant and graft; Z86.73 Personal history of transient ischemic attack (TIA), and cerebral infarction without residual deficits; Z63.79 Other stressful life events affecting family and household
CPT/HCPCS: G0378; S0164

== ENCOUNTER 2020-03-02 11:51 | Emergency (ER) | payer MEDICARE, MEDICAID ==
[~2020-03-02] VITALS: Ht 157.5 cm; Wt 84.0 kg
[~2020-03-02 11:51] MED LIST changes: +ASPIRIN ADULT L81 M2 PO; +EPLERENONE50 MG PO; +HYDRALAZINE10 MG PO; +LABETALOL HYDR100 MG PO; +NITROSTAT0.4 MG SL; +OMEPRAZOLE DR40 MG PO; +PROTONIX40 MG PO
[2020-03-02 12:36] LABS: HEMATOCRIT 44.6 % (37.0-47.0); HEMOGLOBIN 13.9 g/dl (12.0-16.0); IMMATURE GRANULOCYTES 0.3 % (0.0-5.0); MEAN CELL VOLUME 93.5 fL CALC (80.0-100.0); MEAN CORPUSCULAR HGB 29.1 pG CALC (26.0-32.0); MEAN CORPUSCULAR HGB CONC 31.2 g/dL CAL (32.0-36.0); NEUT# 3.66 thou/uL (2.00-7.15); RED BLOOD COUNT 4.77 mill/uL (4.20-5.60)
[2020-03-02 12:48] LABS: ACT PARTIAL THROMBO TIME 25.7 SECONDS (20.0-32.5); PROTHROMBIN TIME 9.8 SECONDS (9.0-12.5)
[2020-03-02 12:51] LABS: ALBUMIN 4.6 g/dL (3.2-5.0); ALKALINE PHOSPHATASE 107 u/l (38-126); ANION GAP 11 (6-22 (CALC)); BILIRUBIN, TOTAL 0.4 mg/dL (0.0-1.4); BUN 17 mg/dL (8-23); BUN/CREATININE RATIO 19 (12-20 (CALC)); CARBON DIOXIDE 28 mmol/l (22-30); CHLORIDE 104 mmol/l (95-108); CREATININE 0.9 mg/dL (0.5-1.0); GFR > 60 ML/MIN (>=60 (CALC)); GFR FOR AFR.AMER. > 60 ML/MIN (>=60 (CALC)); SGOT/AST 25 u/l (9-36); SODIUM 140 mmol/l (137-146); TOTAL PROTEIN 7.5 g/dL (6.3-8.2)
[2020-03-02 12:54] LABS: POTASSIUM 3.3 mmol/l (3.5-5.1)
[2020-03-02] MEDS ORDERED: HYDROCO/APAP1 TA9 PO (14:14)
[2020-03-02] MEDS ORDERED: VALACYCLOVIR HCL1 GM PO ×2 (14:14)
[2020-03-02 14:20] VITALS: BP 182/97
== END 2020-03-02 14:25 | disposition home or self-care (01) ==
LOC: ED 11:51
PROVIDERS: Student in an Organized Health Care Education/Training Program
DX: B02.9 Zoster without complications (principal); I10 Essential (primary) hypertension; Z86.73 Personal history of transient ischemic attack (TIA), and cerebral infarction without residual deficits; Z91.14 Patient's other noncompliance with medication regimen

== ENCOUNTER 2020-03-04 17:16 | Observation (INO) | payer MEDICARE, MEDICAID ==
[~2020-03-04] VITALS: Ht 157.5 cm; Wt 82.0 kg
[2020-03-04] VITALS (9 sets, daily range): BP systolic 140–195; BP diastolic 68–111
[~2020-03-04 17:16] MED LIST changes: +HYDROCO/APAP1 TA9 PO; +VALACYCLOVIR HCL1 GM PO
[2020-03-04 17:47] LABS: HEMATOCRIT 42.2 % (37.0-47.0); HEMOGLOBIN 13.7 g/dl (12.0-16.0); IMMATURE GRANULOCYTES 0.2 % (0.0-5.0); MEAN CELL VOLUME 91.1 fL CALC (80.0-100.0); MEAN CORPUSCULAR HGB 29.6 pG CALC (26.0-32.0); MEAN CORPUSCULAR HGB CONC 32.5 g/dL CAL (32.0-36.0); NEUT# 6.13 thou/uL (2.00-7.15); RED BLOOD COUNT 4.63 mill/uL (4.20-5.60); RED CELL DISTRI WIDTH 14.1 % (11.5-15.5)
[2020-03-04 18:00] LABS: ALBUMIN 4.2 g/dL (3.2-5.0); AMYLASE 76 u/l (30-110); BUN 17 mg/dL (8-23); BUN/CREATININE RATIO 28 (12-20 (CALC)); CARBON DIOXIDE 24 mmol/l (22-30); CHLORIDE 107 mmol/l (95-108); CREATININE 0.6 mg/dL (0.5-1.0); GFR > 60 ML/MIN (>=60 (CALC)); GFR FOR AFR.AMER. > 60 ML/MIN (>=60 (CALC)); LIPASE 23 u/l (23-300); SODIUM 137 mmol/l (137-146); TOTAL PROTEIN 7.4 g/dL (6.3-8.2)
[2020-03-04 18:01] LABS: ACT PARTIAL THROMBO TIME 26.2 SECONDS (20.0-32.5); ALKALINE PHOSPHATASE 168 u/l (38-126); ANION GAP 10 (6-22 (CALC)); POTASSIUM 4.3 mmol/l (3.5-5.1); PROTHROMBIN TIME 10.1 SECONDS (9.0-12.5); SGOT/AST 95 u/l (9-36)
[2020-03-05] VITALS (23 sets, daily range): BP systolic 136–195; BP diastolic 63–99
[2020-03-05] MEDS ORDERED: DIPHEN (01:51)
[2020-03-05] MEDS ORDERED: ACETAMINOPHEN (01:51)
[2020-03-05] MEDS ORDERED: LIPITOR10 M1 PO (01:52)
[2020-03-05] MEDS ORDERED: ASPIRIN81 MG PO (01:54)
[2020-03-05] MEDS ORDERED: UNISOM (01:56)
[2020-03-05 06:32] LABS: HEMATOCRIT 40.9 % (37.0-47.0); HEMOGLOBIN 13.1 g/dl (12.0-16.0); IMMATURE GRANULOCYTES 0.3 % (0.0-5.0); MEAN CORPUSCULAR HGB 29.8 pG CALC (26.0-32.0); NEUT# 4.48 thou/uL (2.00-7.15); RED BLOOD COUNT 4.4 mill/uL (4.20-5.60)
[2020-03-05 06:35] LABS: URINE BILIRUBIN - DIPSTICK NEGATIVE (NEGATIVE); URINE BLOOD DIPSTICK NEGATIVE (NEGATIVE); URINE COLOR YELLOW; URINE GLUCOSE - DIPSTICK NEGATIVE (NEGATIVE); URINE KETONE NEGATIVE (NEGATIVE); URINE LEUK ESTERASE NEGATIVE (NEGATIVE); URINE NITRITE - DIPSTICK NEGATIVE (Negative); URINE PH 5.5 (4.5-8.0); URINE PROTEIN - DIPSTICK NEGATIVE (NEG-TRACE); URINE SPECIFIC GRAVITY >=1.030; URINE UROBILINOGEN - DIPSTICK 0.2 E.U./dL (0.2)
[2020-03-05 06:56] LABS: ANION GAP 11 (6-22 (CALC)); BUN 21 mg/dL (8-23); BUN/CREATININE RATIO 29 (12-20 (CALC)); CARBON DIOXIDE 27 mmol/l (22-30); CHLORIDE 101 mmol/l (95-108); CREATININE 0.7 mg/dL (0.5-1.0); GFR > 60 ML/MIN (>=60 (CALC)); GFR FOR AFR.AMER. > 60 ML/MIN (>=60 (CALC)); POTASSIUM 3.9 mmol/l (3.5-5.1); SODIUM 135 mmol/l (137-146)
[2020-03-06] VITALS (9 sets, daily range): BP systolic 118–223; BP diastolic 63–112
[2020-03-06] MEDS ORDERED: EPLERENONE50 MG PO (07:47)
[2020-03-06] MEDS ORDERED: HYDRALAZINE10 MG PO (07:47)
[2020-03-06] MEDS ORDERED: PAXIL30 MG PO (07:47)
[2020-03-06] MEDS ORDERED: HYDROCO/APAP1 TA9 PO (07:47)
[2020-03-06] MEDS ORDERED: LIPITOR10 M1 PO (07:47)
[2020-03-06] MEDS ORDERED: PROTONIX40 MG PO (07:47)
[2020-03-06] MEDS ORDERED: GABAPENTIN100 MG PO (07:47)
[2020-03-06] MEDS ORDERED: LISINOPRIL20 M1 PO (07:47)
== END 2020-03-06 11:30 | disposition home or self-care (01) ==
LOC: ED 17:16 → ED-I 18:23 → ED 18:44 → ED-I 18:45 → ICU 18:45
PROVIDERS: ADMIT Internal Medicine; ATTEND Internal Medicine
DX: B02.29 Other postherpetic nervous system involvement (principal); I16.0 Hypertensive urgency; I10 Essential (primary) hypertension; R13.10 Dysphagia, unspecified; J39.2 Other diseases of pharynx; T37.5X5A Adverse effect of antiviral drugs, initial encounter; I25.10 Atherosclerotic heart disease of native coronary artery without angina pectoris; E11.9 Type 2 diabetes mellitus without complications; E78.5 Hyperlipidemia, unspecified; F41.9 Anxiety disorder, unspecified; F32.9 Major depressive disorder, single episode, unspecified; T37.5X6A Underdosing of antiviral drugs, initial encounter; T46.5X6A Underdosing of other antihypertensive drugs, initial encounter; Z91.120 Patient's intentional underdosing of medication regimen due to financial hardship; Z86.73 Personal history of transient ischemic attack (TIA), and cerebral infarction without residual deficits; Z95.5 Presence of coronary angioplasty implant and graft; Z20.828 Contact with and (suspected) exposure to other viral communicable diseases
CPT/HCPCS: J2060

== ENCOUNTER 2021-01-15 09:07 | Emergency (ER) | payer MEDICARE, MEDICAID ==
[~2021-01-15] VITALS: Ht 157.5 cm; Wt 75.0 kg
[~2021-01-15 09:07] MED LIST changes: +ACETAMINOPHEN; +DIPHEN; +GABAPENTIN100 MG PO; +LIPITOR10 M1 PO; +UNISOM
[2021-01-15 09:39] LABS: GFR > 60 ML/MIN (>=60 (CALC)); GFR FOR AFR.AMER. > 60 ML/MIN (>=60 (CALC))
[2021-01-15] MEDS ORDERED: NORVASC5 M1 PO (09:43)
[2021-01-15 09:45] LABS: HEMATOCRIT 46.3 % (37.0-47.0); HEMOGLOBIN 14.8 g/dl (12.0-16.0); IMMATURE GRANULOCYTES 0.2 % (0.0-5.0); MEAN CELL VOLUME 92.8 fL CALC (80.0-100.0); MEAN CORPUSCULAR HGB 29.7 pG CALC (26.0-32.0); NEUT# 11.33 thou/uL (2.00-7.15); RED BLOOD COUNT 4.99 mill/uL (4.20-5.60); RED CELL DISTRI WIDTH 14.8 % (11.5-15.5)
[2021-01-15 09:57] LABS: INTERNATIONAL NORMALIZED RATIO 0.9 RATIO (0.7-1.3); PROTHROMBIN TIME 9.5 SECONDS (9.0-12.5)
[2021-01-15 10:03] LABS: ALBUMIN 4.3 g/dL (3.2-5.0); ALKALINE PHOSPHATASE 117 u/l (38-126); ANION GAP 14 (6-22 (CALC)); BILIRUBIN, TOTAL 0.5 mg/dL (0.0-1.4); BUN 14 mg/dL (8-23); BUN/CREATININE RATIO 17 (12-20 (CALC)); CARBON DIOXIDE 26 mmol/l (22-30); CHLORIDE 103 mmol/l (95-108); CREATININE 0.8 mg/dL (0.5-1.0); GFR > 60 ML/MIN (>=60 (CALC)); GFR FOR AFR.AMER. > 60 ML/MIN (>=60 (CALC)); POTASSIUM 3.6 mmol/l (3.5-5.1); SGOT/AST 47 u/l (9-36); SODIUM 139 mmol/l (137-146)
[2021-01-15 10:25] VITALS: BP 138/77
== END 2021-01-15 10:23 | disposition short-term general hospital (02) ==
LOC: ED 09:07
PROVIDERS: Family Medicine
DX: I20.0 Unstable angina (principal); I10 Essential (primary) hypertension; I25.2 Old myocardial infarction; F17.200 Nicotine dependence, unspecified, uncomplicated; Z86.73 Personal history of transient ischemic attack (TIA), and cerebral infarction without residual deficits; Z95.5 Presence of coronary angioplasty implant and graft; Z20.822 Contact with and (suspected) exposure to COVID-19; R30.0 Dysuria; B96.20 Unspecified Escherichia coli [E. coli] as the cause of diseases classified elsewhere
CPT/HCPCS: J1644

== ENCOUNTER 2021-02-24 16:47 | Emergency (ER) | payer MEDICARE, MEDICAID ==
[~2021-02-24] VITALS: Ht 157.5 cm; Wt 95.0 kg
[~2021-02-24 16:47] MED LIST changes: +NORVASC5 M1 PO
[2021-02-24 17:31] LABS: HEMATOCRIT 49.8 % (37.0-47.0); HEMOGLOBIN 15.7 g/dl (12.0-16.0); IMMATURE GRANULOCYTES 0.1 % (0.0-5.0); MEAN CORPUSCULAR HGB CONC 31.5 g/dL CAL (32.0-36.0); NEUT# 7.5 thou/uL (2.00-7.15); RED BLOOD COUNT 5.06 mill/uL (4.20-5.60); RED CELL DISTRI WIDTH 15.4 % (11.5-15.5)
[2021-02-24 17:34] LABS: MEAN CELL VOLUME 98.4 fL CALC (80.0-100.0)
[2021-02-24 17:38] LABS: URINE BILIRUBIN - DIPSTICK NEGATIVE (NEGATIVE); URINE BLOOD DIPSTICK TRACE-INTACT (NEGATIVE); URINE COLOR YELLOW; URINE GLUCOSE - DIPSTICK NEGATIVE (NEGATIVE); URINE KETONE NEGATIVE (NEGATIVE); URINE LEUK ESTERASE NEGATIVE (NEGATIVE); URINE PROTEIN - DIPSTICK NEGATIVE (NEG-TRACE); URINE SPECIFIC GRAVITY >=1.030; URINE UROBILINOGEN - DIPSTICK 0.2 E.U./dL (0.2)
[2021-02-24 17:52] LABS: D-DIMER 0.8 mg/L (0.19-0.60)
[2021-02-24 17:53] LABS: URINE NITRITE - DIPSTICK NEGATIVE (Negative)
[2021-02-24 17:55] LABS: ALBUMIN 4.8 g/dL (3.2-5.0); ALKALINE PHOSPHATASE 114 u/l (38-126); ANION GAP 18 (6-22 (CALC)); BILIRUBIN, TOTAL 0.5 mg/dL (0.0-1.4); BUN 17 mg/dL (8-23); BUN/CREATININE RATIO 21 (12-20 (CALC)); CARBON DIOXIDE 22 mmol/l (22-30); CHLORIDE 105 mmol/l (95-108); CREATININE 0.8 mg/dL (0.5-1.0); GFR > 60 ML/MIN (>=60 (CALC)); GFR FOR AFR.AMER. > 60 ML/MIN (>=60 (CALC)); LIPASE 52 u/l (23-300); SGOT/AST 22 u/l (9-36); SODIUM 142 mmol/l (137-146); TOTAL PROTEIN 8.4 g/dL (6.3-8.2)
[2021-02-24 17:58] LABS: ACT PARTIAL THROMBO TIME 25.6 SECONDS (20.0-32.5); INTERNATIONAL NORMALIZED RATIO 0.9 RATIO (0.7-1.3); PROTHROMBIN TIME 9.5 SECONDS (9.0-12.5)
[2021-02-24 20:03] VITALS: BP 192/89
[2021-02-24] MEDS ORDERED: DOXYCYCL HYC100 MG PO (20:54)
== END 2021-02-24 21:53 | disposition home or self-care (01) ==
LOC: ED 16:47
DX: R06.02 Shortness of breath (principal); I10 Essential (primary) hypertension; I25.2 Old myocardial infarction; Z86.73 Personal history of transient ischemic attack (TIA), and cerebral infarction without residual deficits; Z20.822 Contact with and (suspected) exposure to COVID-19
CPT/HCPCS: Q9967

== ENCOUNTER 2021-02-26 10:35 | Observation (INO) | payer MEDICARE, MEDICAID ==
[~2021-02-26 10:35] MED LIST changes: +DOXYCYCL HYC100 MG PO
[2021-02-26 11:45] LABS: ALBUMIN 4.3 g/dL (3.2-5.0); ALKALINE PHOSPHATASE 80 u/l (38-126); AMYLASE 84 u/l (30-110); ANION GAP 14 (6-22 (CALC)); BILIRUBIN, TOTAL 0.3 mg/dL (0.0-1.4); BUN 23 mg/dL (8-23); BUN/CREATININE RATIO 26 (12-20 (CALC)); CARBON DIOXIDE 23 mmol/l (22-30); CHLORIDE 107 mmol/l (95-108); CREATININE 0.9 mg/dL (0.5-1.0); GFR > 60 ML/MIN (>=60 (CALC)); GFR FOR AFR.AMER. > 60 ML/MIN (>=60 (CALC)); LIPASE 57 u/l (23-300); MAGNESIUM 1.9 mg/dL (1.6-2.3); POTASSIUM 3.6 mmol/l (3.5-5.1); SGOT/AST 37 u/l (9-36); SODIUM 140 mmol/l (137-146); TOTAL PROTEIN 7.5 g/dL (6.3-8.2)
[2021-02-26 11:50] LABS: IMMATURE GRANULOCYTES 0.1 % (0.0-5.0); MEAN CORPUSCULAR HGB 30.6 pG CALC (26.0-32.0); MEAN CORPUSCULAR HGB CONC 31.3 g/dL CAL (32.0-36.0); NEUT# 6.21 thou/uL (2.00-7.15); RED BLOOD COUNT 4.44 mill/uL (4.20-5.60); RED CELL DISTRI WIDTH 15.4 % (11.5-15.5)
[2021-02-26 11:53] LABS: HEMATOCRIT 43.5 % (37.0-47.0); HEMOGLOBIN 13.6 g/dl (12.0-16.0)
[2021-02-26 12:05] LABS: URINE BILIRUBIN - DIPSTICK NEGATIVE (NEGATIVE); URINE BLOOD DIPSTICK NEGATIVE (NEGATIVE); URINE COLOR YELLOW; URINE GLUCOSE - DIPSTICK NEGATIVE (NEGATIVE); URINE KETONE TRACE mg/dL (NEGATIVE); URINE LEUK ESTERASE NEGATIVE (NEGATIVE); URINE PROTEIN - DIPSTICK TRACE mg/dL (NEG-TRACE); URINE SPECIFIC GRAVITY >=1.030; URINE UROBILINOGEN - DIPSTICK 0.2 E.U./dL (0.2)
[2021-02-26 12:08] LABS: URINE NITRITE - DIPSTICK NEGATIVE (Negative)
[2021-02-26] MEDS ORDERED: ACETAMINOPHEN500 M1 PO (15:54)
[2021-02-26] MEDS ORDERED: ALENDRONATE SOD70 MG PO (15:55)
[2021-02-26] MEDS ORDERED: WELLBUTRIN XL300 MG PO (15:56)
[2021-02-26 15:57] VITALS: BP 146/85
[2021-02-26] MEDS ORDERED: ALBUTEROL SUL0.083 % IN (15:57)
[2021-02-26] MEDS ORDERED: AMLODIPINE BESY10 MG PO (15:57)
[2021-02-26] MEDS ORDERED: SINGULAIR10 MG PO (15:58)
[2021-02-26] MEDS ORDERED: OMEPRAZOLE DR40 MG PO (15:58)
[2021-02-26] MEDS ORDERED: BUSPIRONE HYDR7.5 MG PO (15:59)
[2021-02-26] MEDS ORDERED: OXYBUTYNIN CHLOR5 M1 PO (15:59)
[2021-02-26] MEDS ORDERED: BRILINTA90 MG PO (16:00)
[2021-02-26] MEDS ORDERED: LABETALOL HYDR100 MG PO (16:00)
[2021-02-26] MEDS ORDERED: HYDRALAZINE HYD25 MG PO (16:00)
[2021-02-26] MEDS ORDERED: ATORVASTATIN CA80 MG PO (16:01)
[2021-02-26 18:54] VITALS: BP 121/71
[2021-02-27] VITALS: BP 138/76
[2021-02-27 04:23] VITALS: BP 139/85
[2021-02-27 05:45] LABS: HEMATOCRIT 44.4 % (37.0-47.0); HEMOGLOBIN 14.1 g/dl (12.0-16.0); MEAN CELL VOLUME 97.6 fL CALC (80.0-100.0); MEAN CORPUSCULAR HGB CONC 31.8 g/dL CAL (32.0-36.0); RED BLOOD COUNT 4.55 mill/uL (4.20-5.60); RED CELL DISTRI WIDTH 15.1 % (11.5-15.5)
[2021-02-27 05:57] LABS: BUN 22 mg/dL (8-23); BUN/CREATININE RATIO 27 (12-20 (CALC)); CHLORIDE 101 mmol/l (95-108); CREATININE 0.8 mg/dL (0.5-1.0); GFR > 60 ML/MIN (>=60 (CALC)); GFR FOR AFR.AMER. > 60 ML/MIN (>=60 (CALC)); HDL CHOLESTEROL 50 mg/dL (>=40); MAGNESIUM 1.9 mg/dL (1.6-2.3); POTASSIUM 3.9 mmol/l (3.5-5.1); SODIUM 138 mmol/l (137-146); TOTAL TRIGLYCERIDES 379 mg/dl (30-149); VLDL CHOLESTROL 76 mg/dl (1-41 (CALC))
[2021-02-27 06:00] LABS: ANION GAP 11 (6-22 (CALC)); CALCULATED LDLCHOLESTEROL 76 mg/dL (62-129 (CALC)); CARBON DIOXIDE 30 mmol/l (22-30); TOTAL CHOLESTEROL 202 mg/dl (0-199)
[2021-02-27 08:05] VITALS: BP 131/86
[2021-02-27] MEDS ORDERED: LASIX20 MG PO ×2 (11:41→12:53)
[2021-02-27 11:49] VITALS: BP 134/72
[2021-02-27] MEDS ORDERED: PREDNISONE5 MG PO (12:53)
== END 2021-02-27 13:02 | disposition home or self-care (01) ==
LOC: ED 10:35 → ED-I 13:04 → ED 14:39 → MS2 14:40
PROVIDERS: Emergency Medicine; Nurse Practitioner; ADMIT Hospitalist; ATTEND Hospitalist
DX: R07.89 Other chest pain (principal); R00.1 Bradycardia, unspecified; I21.9 Acute myocardial infarction, unspecified; I10 Essential (primary) hypertension; E11.9 Type 2 diabetes mellitus without complications; I25.10 Atherosclerotic heart disease of native coronary artery without angina pectoris; E78.5 Hyperlipidemia, unspecified; F32.9 Major depressive disorder, single episode, unspecified; F41.9 Anxiety disorder, unspecified; Z79.02 Long term (current) use of antithrombotics/antiplatelets; Z79.82 Long term (current) use of aspirin; Z86.73 Personal history of transient ischemic attack (TIA), and cerebral infarction without residual deficits; Z95.5 Presence of coronary angioplasty implant and graft; Z20.822 Contact with and (suspected) exposure to COVID-19
CPT/HCPCS: G0378; J1650

== ENCOUNTER 2022-01-02 15:34 | Emergency (ER) | payer MEDICARE, MEDICAID ==
[~2022-01-02] VITALS: Ht 157.5 cm; Wt 72.7 kg
[2022-01-02] VITALS (7 sets, daily range): BP systolic 142–192; BP diastolic 88–122
[~2022-01-02 15:34] MED LIST changes: +ACETAMINOPHEN500 M1 PO; +ALBUTEROL SUL0.083 % IN; +ALENDRONATE SOD70 MG PO; +AMLODIPINE BESY10 MG PO; +ATORVASTATIN CA80 MG PO; +BRILINTA90 MG PO; +BUSPIRONE HYDR7.5 MG PO; +HYDRALAZINE HYD25 MG PO; +LASIX20 MG PO; +OXYBUTYNIN CHLOR5 M1 PO; +PREDNISONE5 MG PO; +SINGULAIR10 MG PO; +WELLBUTRIN XL300 MG PO
[2022-01-02 16:03] LABS: HEMATOCRIT 46.1 % (37.0-47.0); HEMOGLOBIN 14.8 g/dl (12.0-16.0); IMMATURE GRANULOCYTES 0.2 % (0.0-5.0); MEAN CELL VOLUME 97.9 fL CALC (80.0-100.0); MEAN CORPUSCULAR HGB 31.4 pG CALC (26.0-32.0); MEAN CORPUSCULAR HGB CONC 32.1 g/dL CAL (32.0-36.0); NEUT# 8.82 thou/uL (2.00-7.15); RED BLOOD COUNT 4.71 mill/uL (4.20-5.60); RED CELL DISTRI WIDTH 14.7 % (11.5-15.5)
[2022-01-02 16:22] LABS: ALBUMIN 4.8 g/dL (3.2-5.0); ALKALINE PHOSPHATASE 123 u/l (38-126); ANION GAP 15 (6-22 (CALC)); BILIRUBIN, TOTAL 0.4 mg/dL (0.0-1.4); BUN 17 mg/dL (8-23); BUN/CREATININE RATIO 21 (12-20 (CALC)); CARBON DIOXIDE 25 mmol/l (22-30); CHLORIDE 107 mmol/l (95-108); CREATININE 0.8 mg/dL (0.5-1.0); ETHYL ALCOHOL 0 mg/dl (0-30); GFR FOR AFR.AMER. > 60 ML/MIN (>=60 (CALC)); GFR OTHER RACES > 60 ML/MIN (>=60 (CALC)); SGOT/AST 23 u/l (9-36); SODIUM 144 mmol/l (137-146); TOTAL PROTEIN 8.5 g/dL (6.3-8.2)
[2022-01-02 16:23] LABS: POTASSIUM 3.3 mmol/l (3.5-5.1)
[2022-01-02 17:04] LABS: URINE BILIRUBIN - DIPSTICK NEGATIVE (NEGATIVE); URINE BLOOD DIPSTICK NEGATIVE (NEGATIVE); URINE COLOR YELLOW; URINE GLUCOSE - DIPSTICK NEGATIVE (NEGATIVE); URINE KETONE NEGATIVE (NEGATIVE); URINE LEUK ESTERASE NEGATIVE (NEGATIVE); URINE PROTEIN - DIPSTICK TRACE mg/dL (NEG-TRACE); URINE SPECIFIC GRAVITY >=1.030; URINE UROBILINOGEN - DIPSTICK 0.2 E.U./dL (0.2)
[2022-01-02 17:06] LABS: URINE NITRITE - DIPSTICK NEGATIVE (Negative)
== END 2022-01-02 18:44 | disposition home or self-care (01) ==
LOC: ED 15:34
PROVIDERS: Family Medicine
DX: F32.A Depression, unspecified (principal); I10 Essential (primary) hypertension; E11.9 Type 2 diabetes mellitus without complications; I25.10 Atherosclerotic heart disease of native coronary artery without angina pectoris; F41.9 Anxiety disorder, unspecified; E78.5 Hyperlipidemia, unspecified; Z86.73 Personal history of transient ischemic attack (TIA), and cerebral infarction without residual deficits; Z95.5 Presence of coronary angioplasty implant and graft

== ENCOUNTER 2022-09-28 06:42 | Emergency (ER) | payer MEDICARE, MEDICAID ==
[~2022-09-28] VITALS: Ht 157.5 cm; Wt 72.0 kg
[2022-09-28] VITALS (9 sets, daily range): BP systolic 130–170; BP diastolic 73–91
[2022-09-28 07:41] LABS: BASO% 0.2 % (0-3); EOS% 0.6 % (0-8); HEMOGLOBIN 15.8 g/dl (12.0-16.0); IMMATURE GRANULOCYTES 0.2 % (0.0-5.0); LYMPH% 19.3 % (15-41); MEAN CELL VOLUME 95.7 fL CALC (80.0-100.0); MEAN CORPUSCULAR HGB 30.9 pG CALC (26.0-32.0); MEAN CORPUSCULAR HGB CONC 32.2 g/dL CAL (32.0-36.0); MONO% 4.6 % (2-13); NEUT# 6.65 thou/uL (2.00-7.15); NEUT% 75.1 % (42-76); RED BLOOD COUNT 5.12 mill/uL (4.20-5.60); RED CELL DISTRI WIDTH 13.8 % (11.5-15.5)
[2022-09-28 08:02] LABS: ALBUMIN 4.8 g/dL (3.2-5.0); ALKALINE PHOSPHATASE 129 u/l (38-126); BILIRUBIN, TOTAL 0.4 mg/dL (0.02-1.3); BUN 13 mg/dL (8-23); BUN/CREATININE RATIO 18 (12-20 (CALC)); CARBON DIOXIDE 26 mmol/l (22-30); CHLORIDE 103 mmol/l (95-108); CREATININE 0.7 mg/dL (0.5-1.0); GFR FOR AFR.AMER. > 60 ML/MIN (>=60 (CALC)); GFR OTHER RACES > 60 ML/MIN (>=60 (CALC)); SGOT/AST 27 u/l (9-36); SODIUM 138 mmol/l (137-146); TOTAL PROTEIN 8.3 g/dL (6.3-8.2)
[2022-09-28 08:15] LABS: ANION GAP 12 (6-22 (CALC))
[2022-09-28] MEDS ORDERED: FUROSEMIDE20 MG PO (08:15)
[2022-09-28] MEDS ORDERED: PAROXETINE20 MG PO (08:16)
[2022-09-28] MEDS ORDERED: LIPITOR20 M1 PO (08:16)
[2022-09-28 09:53] LABS: URINE BILIRUBIN - DIPSTICK NEGATIVE (NEGATIVE); URINE BLOOD DIPSTICK NEGATIVE (NEGATIVE); URINE COLOR YELLOW; URINE GLUCOSE - DIPSTICK NEGATIVE (NEGATIVE); URINE KETONE NEGATIVE (NEGATIVE); URINE LEUK ESTERASE NEGATIVE (NEGATIVE); URINE PH 5.5 (4.5-8.0); URINE PROTEIN - DIPSTICK NEGATIVE (NEG-TRACE); URINE SPECIFIC GRAVITY 1.025; URINE UROBILINOGEN - DIPSTICK 0.2 E.U./dL (0.2)
[2022-09-28 09:55] LABS: URINE NITRITE - DIPSTICK NEGATIVE (Negative)
[2022-09-28] MEDS ORDERED: K-TAB20 MEQ PO (10:15)
[2022-09-28] MEDS ORDERED: DECADRON4 MG PO (10:16)
[2022-09-29] MEDS ORDERED: K-TAB20 MEQ PO (08:27)
[2022-09-29] MEDS ORDERED: DECADRON4 MG PO (08:27)
== END 2022-09-28 10:56 | disposition home or self-care (01) ==
LOC: ED 06:42
PROVIDERS: Family Medicine
DX: M54.50 Low back pain, unspecified (principal); E87.6 Hypokalemia; I10 Essential (primary) hypertension; Z86.73 Personal history of transient ischemic attack (TIA), and cerebral infarction without residual deficits; F32.A Depression, unspecified